=== PATIENT | female | born 1950 | race Caucasian/White ===

== ENCOUNTER 2021-06-03 08:48 | Day surgery (SDC) | payer BC, OTHER ==
[2021-06-03] MEDS ORDERED: Ringers Lactate 1,000 ML IV ONE (09:45)
[2021-06-03] MEDS ORDERED: LIDOCAINE 1% MPF 5 ML VIAL ONE (11:11)
[2021-06-03] MEDS ORDERED: propofoL 200 MG/20 ML VIAL IV ONE (11:11)
--- NOTE | 2021-06-03 11:30 | ENDO RPT ---
[address], [address] COLONOSCOPY PROCEDURE REPORT EXAM DATE: 06/03/2021 PATIENT NAME: Maria Teresa Holder MR #: [id number] BIRTHDATE: 1950 ATTENDING: Samir Daily MD STATUS: outpatient BINDERY WORKER: Asia Romano RN and Claude Carney CST INDICATIONS: The patient is a 70 yr old Female here for a colonoscopy due to personal history of colon polyps and COLOGUARD POSITIVE PROCEDURE PERFORMED: Colonoscopy with biopsy - cold polypectomy MEDICATIONS: Per Anesthesia. ESTIMATED BLOOD LOSS: None CONSENT: The patient understands the risks and benefits of the procedure and understands that these risks include, but are not limited to: sedation, allergic reaction, infection, perforation and/or bleeding. Alternative means of evaluation and treatment include, among others: physical exam, x-rays, and/or surgical intervention. The patient elects to proceed with this endoscopic procedure. DESCRIPTION OF PROCEDURE: During intra-op preparation period all mechanical medical equipment was checked for proper function. Hand hygiene and appropriate measures for infection prevention was taken. Procedure, possible complications, alternatives including, but not limited to possibility of bleeding, perforation, tear, infection, sepsis, need for surgery, need for blood transfusion, were explained to the patient. After the risks, benefits and alternatives of the procedure were thoroughly explained, Informed consent was verified, confirmed and timeout was successfully executed by the treatment team. The patient was placed in the left lateral position. A digital rectal exam was performed and revealed external hemorrhoids. After appropriate level of anesthesia, the scope was passed. The EC-[id number] ([id number]) endoscope was introduced through the anus and advanced to the cecum, which was identified by transillumination from the light source, the appendix, and the ileocecal valve. The quality of the prep was good. The instrument was then slowly withdrawn as the colon was fully examined. Scope withdrawal time was . COLON FINDINGS: Small internal and external hemorrhoids were found. Three sessile polyps measuring 3 mm in size with friable surfaces were found in the proximal ascending colon. A polypectomy was performed using hot forceps. The resection was complete, the polyp tissue was completely retrieved and sent to histology. Diverticula was found in the descending colon. The opening was small. Retroflexed views revealed no abnormalities. The scope was then completely withdrawn from the patient and the procedure terminated. ADVERSE EVENTS: There were no complications. IMPRESSIONS: 1. Small internal and external hemorrhoids 2. Three sessile polyps were found in the proximal ascending colon; polypectomy was performed in a piecemeal fashion using hot forceps 3. Diverticula in the descending colon RECOMMENDATIONS: 1. await biopsy results 2. follow-up: office 1 week(s) 3. no seeds in diet RECALL: for Colonoscopy, pending biopsy results. Samir Daily MD eSigned: Samir Daily MD 06/03/2021 11:30 AM cc: Jasvir Perez M.D. CPT CODES: ICD9 CODES: PATIENT NAME: Maria Teresa Holder MR#: [id number]
[2021-06-03 12:01] VITALS: BP 122/59; TEMP 97.3; O2SAT 99
== END 2021-06-03 11:46 | disposition home or self-care (01) ==
LOC: OR 08:48
PROVIDERS: ATTEND Surgery
PROC: 0DBK8ZX Excision of Ascending Colon, Via Natural or Artificial Opening Endoscopic, Diagnostic (ICD-10-PCS; principal; 2021-06-03 11:00)
DX: D12.2 Benign neoplasm of ascending colon (principal); Z86.010 Personal history of colon polyps; K64.4 Residual hemorrhoidal skin tags; K64.8 Other hemorrhoids
CPT/HCPCS: 88305; 45384; U0003; J2704; J7120

== ENCOUNTER 2023-08-12 06:25 | Day surgery (SDC) | payer BC, OTHER ==
[2023-08-12] MEDS: Ringers Lactate 1,000 ML IV ONE ×2 (06:52→07:27)
[2023-08-12] MEDS ORDERED: LIDOCAINE 1% MPF 5 ML VIAL ONE (07:44)
[2023-08-12] MEDS ORDERED: propofoL 200 MG/20 ML VIAL IV ONE (07:44)
[2023-08-12 08:59] VITALS: BP 114/64; TEMP 96.6; O2SAT 98
== END 2023-08-12 08:46 | disposition home or self-care (01) ==
LOC: OR 06:25
PROVIDERS: ATTEND Surgery
PROC: 0DBK8ZX Excision of Ascending Colon, Via Natural or Artificial Opening Endoscopic, Diagnostic (ICD-10-PCS; principal; 2023-08-12 07:30)
DX: Z12.11 Encounter for screening for malignant neoplasm of colon (principal); Z86.010 Personal history of colon polyps; Z80.0 Family history of malignant neoplasm of digestive organs; D12.2 Benign neoplasm of ascending colon
CPT/HCPCS: 88305; 45384; J2704; J2001; J7120